=== PATIENT | female | born 1935 | race Caucasian/White ===

== ENCOUNTER 2018-03-11 15:32 | Outpatient (CLI) | END 2018-03-11 15:58 | disposition short-term general hospital (02) | LOC: AMBL 15:32 | PROVIDERS: ATTEND Internal Medicine | DX: R55 Syncope and collapse (principal); R11.0 Nausea; R09.89 Other specified symptoms and signs involving the circulatory and respiratory systems; I48.91 Unspecified atrial fibrillation; R73.9 Hyperglycemia, unspecified; G30.9 Alzheimer's disease, unspecified; F02.80 Dementia in other diseases classified elsewhere, unspecified severity, without behavioral disturbance, psychotic disturbance, mood disturbance, and anxiety ==

== ENCOUNTER 2018-08-05 07:51 | Outpatient (CLI) ==
[2018-08-06 18:30] VITALS: BMI 33.2
== END 2018-08-05 07:52 | disposition home or self-care (01) ==
LOC: NONPT 07:51
PROVIDERS: ATTEND General Practice
DX: Z79.899 Other long term (current) drug therapy (principal)
CPT/HCPCS: 81001; 87086

== ENCOUNTER 2018-08-06 17:44 | Outpatient (CLI) ==
[2018-08-06 18:30] VITALS: BMI 33.2
== END 2018-08-06 17:51 | disposition critical access hospital (66) ==
LOC: AMBL 17:44
PROVIDERS: ATTEND Emergency Medicine
DX: R79.89 Other specified abnormal findings of blood chemistry (principal); G30.9 Alzheimer's disease, unspecified; F02.80 Dementia in other diseases classified elsewhere, unspecified severity, without behavioral disturbance, psychotic disturbance, mood disturbance, and anxiety

== ENCOUNTER 2018-10-03 07:23 | Outpatient (CLI) | END 2018-10-03 07:24 | disposition home or self-care (01) | LOC: NONPT 07:23 | PROVIDERS: ATTEND General Practice | DX: N39.0 Urinary tract infection, site not specified (principal); Z79.899 Other long term (current) drug therapy | CPT/HCPCS: 80053; 85025 ==

== ENCOUNTER 2018-10-04 07:37 | Outpatient (CLI) | END 2018-10-04 07:38 | disposition home or self-care (01) | LOC: NONPT 07:37 | PROVIDERS: ATTEND General Practice | DX: R30.0 Dysuria (principal); R41.82 Altered mental status, unspecified; R82.90 Unspecified abnormal findings in urine | CPT/HCPCS: 81001; 87086; 87186 ==

== ENCOUNTER 2018-10-17 10:19 | Outpatient (CLI) | END 2018-10-17 10:20 | disposition home or self-care (01) | LOC: NONPT 10:19 | PROVIDERS: ATTEND General Practice | DX: R60.9 Edema, unspecified (principal); I10 Essential (primary) hypertension | CPT/HCPCS: 80048 ==